=== PATIENT | male | born 1975 | race Two or more races ===

== ENCOUNTER → 2025-03-17 | Emergency (ER) | payer OTHER ==
[~2025-03-17] VITALS: Ht 177.8 cm; Wt 85.3 kg
[~2025-03-17] MED LIST: NEXIUM40 M1 PO
[2025-03-17 09:16] VITALS: BP 131/74; O2SAT 99
[2025-03-17 10:21] LABS: HEMATOCRIT 43.1 % (39.0-48.0); HEMOGLOBIN 14.6 g/dL (13-16.00); MEAN CELL VOLUME 92.9 fL (80.0-100.00); MEAN CORPUSCULAR HEMOGLOBIN 31.4 pg (27.00-32.0); MEAN CORPUSCULAR HGB CONC 33.8 g/dl (32.0-36.0); PLATELET COUNT 217 K/uL (150-450); RED BLOOD COUNT 4.63 M/uL (4.00-6.00)
== END | disposition left against medical advice (07) ==
LOC: ER 09:03
PROVIDERS: General Practice
DX: I87.2 Venous insufficiency (chronic) (peripheral) (principal)